=== PATIENT | female | born 1985 | race Caucasian/White ===

== ENCOUNTER 2017-05-31 18:49 | Emergency (ER) | payer OTHER ==
[2017-05-31 22:15] LABS: BASOPHIL % 0.4 % (0-2); PLATELET COUNT 321 x10^3mcL (130-400); RED CELL DISTRIBUTION WIDTH 12.8 % (11.5-14.5)
[2017-05-31 22:20] LABS: CARBON DIOXIDE 27.7 mmol/L (21-32); CHLORIDE SERUM 99 mmol/L (98-107); CREATININE SERUM 0.8 mg/dL (0.6-1.0); GFR1 > 60 mL/min; GLUCOSE SERUM 88 mg/dL (74-106); POTASSIUM SERUM 3.3 mmol/L (3.5-5.1); SODIUM SERUM 138 mmol/L (136-145)
[2017-05-31 22:23] LABS: ALBUMIN 4.1 g/dL (3.4-5.0); ALKALINE PHOSPHATASE 59 U/L (46-116); ALT/SGPT 28 U/L (14-59); AMYLASE 33 U/L (25-115); AST/SGOT 19 U/L (15-37); BILIRUBIN TOTAL 0.7 mg/dL (0.20-1.00); LIPASE 79 IU/L (73-393); TOTAL PROTEIN, SERUM 7.8 g/dL (6.4-8.2)
[2017-06-01 00:48] VITALS: BP 138/91
[2017-06-02] MEDS ORDERED: NORCO1 TA2 (11:37)
== END 2017-06-01 00:48 | disposition home or self-care (01) ==
LOC: ED 18:49
PROVIDERS: Emergency Medicine
DX: K80.70 Calculus of gallbladder and bile duct without cholecystitis without obstruction (principal); Z88.8 Allergy status to other drugs, medicaments and biological substances
CPT/HCPCS: 36415; 83880; J1170; J2270; Q0092; Q0162

== ENCOUNTER 2017-06-02 10:37 | Inpatient (IN) | payer OTHER ==
[~2017-06-02] VITALS: Ht 154.9 cm; Wt 82.8 kg
--- NOTE | 2017-06-02 10:45 | NUR ---
PT C/O RUQ ABD PAIN X2 DAYS. PT REPORTS RECENT DX OF GALLSTONES AND HAS BEEN UNABLE TO SEE PMD. PT STS SHE TOOK 2 NORCOS THIS AM AND HAS NOT FELT RELIEF FROM PAIN. PT REPORTS 10/10 ABD PAIN. STS NAUSEA AND DENIES EMESIS. NO ABD DISTENTION NOTED. COMFORT MEASURES IMPLEMENTED. CALL LIGHT W/IN REACH. PT AWAITING MSE. WILL CONTINUE TO MONITOR.
[2017-06-02 11:12] LABS: BASOPHIL % 0.4 % (0-2); PLATELET COUNT 322 x10^3mcL (130-400); RED CELL DISTRIBUTION WIDTH 12.8 % (11.5-14.5)
--- NOTE | 2017-06-02 11:16 | NUR ---
MEDICATED ORDERED. PLEASE SEE EMR.
[2017-06-02 11:32] LABS: ALBUMIN 4.2 g/dL (3.4-5.0); ALKALINE PHOSPHATASE 314 U/L (46-116); ALT/SGPT 803 U/L (14-59); AST/SGOT 817 U/L (15-37); BILIRUBIN TOTAL 4.8 mg/dL (0.20-1.00); CALCIUM 9.8 mg/dL (8.5-10.1); CARBON DIOXIDE 28.9 mmol/L (21-32); CHLORIDE SERUM 100 mmol/L (98-107); CREATININE SERUM 0.8 mg/dL (0.6-1.0); GFR1 > 60 mL/min; GLUCOSE SERUM 98 mg/dL (74-106); LIPASE 123 IU/L (73-393); POTASSIUM SERUM 3.8 mmol/L (3.5-5.1); SODIUM SERUM 135 mmol/L (136-145)
[2017-06-02 11:33] LABS: TOTAL PROTEIN, SERUM 8.5 g/dL (6.4-8.2)
[2017-06-02] MEDS ORDERED: NORCO1 TA2 (11:37)
--- NOTE | 2017-06-02 11:50 | NUR ---
LAB AT BEDSIDE FOR DRAW.
--- NOTE | 2017-06-02 12:30 | NUR ---
PT REPORTING INCREASE IN PAIN. DISCOMFORT NOTED. PRN PAIN MEDS TO FOLLOW.
--- NOTE | 2017-06-02 12:43 | NUR ---
MEDICATED ORDERED. PLEASE SEE EMR.
[2017-06-02 12:55] LABS: UA SPECIFIC GRAVITY <=1.005 (1.005-1.035); microscopic required? YES; urine erythrocyte NEGATIVE (NEGATIVE)
--- NOTE | 2017-06-02 13:03 | NUR ---
REPORT GIVEN TO VIRAL BAXTER FOR CONTINUATION OF CARE.
[2017-06-02 13:15] LABS: PHOSPHOROUS 2.8 mg/dL (2.5-4.9)
[2017-06-02 13:17] LABS: CHOLESTEROL/HDL RATIO 2.1
[2017-06-02 13:25] LABS: FREE T4 1.31 ng/dL (0.76-1.46); FREE THYROXINE INDEX 4.4 ug/dL (1.4-4.5); T4(THYROXINE) 11.6 ug/dL (4.7-13.3)
[2017-06-02 13:28] LABS: T3 TOTAL 1.03 ng/mL
--- NOTE | 2017-06-02 13:40 | NUR ---
RECEIVED PT FROM ED VIA [facility], CAME IN DUE TO RIGHT SIDED ABDOMINAL PAIN RADIATING TO HER BACK SINCE MONDAY. AAOX4. C/O DIZZINESS. NO SOB NOTED. LUNG SOUNDS CTA. DENIES CHEST PAIN/PRESSURE, SINUS TACHYCARDIA ON THE MONITOR, HR AT 116. C/O 4/10 RIGHT SIDED ABDOMINAL AND BACK PAIN DESCRIBED SHARP. C/O DRY MOUTH. VOIDS FREELY. PRIMARY NURSE SAHIL MADE AWARE THAT OGYP=039.0. RECEIVED PT FROM ED W/ LELO ONGOING. SIDE RAILS UPX2. CALL LIGHT ON REACH. AT BEDSIDE. ENDORSED
[2017-06-02 13:43] VITALS: BP 129/87
[2017-06-02 13:51] VITALS: Ht 154.9 cm; Wt 82.8 kg
[2017-06-02 13:52] VITALS: BP 129/87
--- NOTE | 2017-06-02 14:49 | NUR ---
RUSUME CARE OF PATIENT. PATIENT AWAKE ALERT, NO DISTRESS NOTED AT THIS TIME. REPORTS PAIN IS BETTER AND IS MORE MANAGEABLE
--- NOTE | 2017-06-02 15:07 | NUR ---
TEMP NOW IS 99.4. COOLING MEASURES MAINTAINED.
[2017-06-02 15:14] LABS: AMPHETAMINE QUAL UR NONE DETECTED (NEG <=1000)
--- NOTE | 2017-06-02 15:41 | NUR ---
REPORTS PAIN 8/10 IN ABD AND BACK, GIVEN MORPHINE IVP, TOLERATED WELL. SAHIL RN IN ROOM ASSISTING WITH KEITH WASH BEFORE PROCEDURE
--- NOTE | 2017-06-02 15:59 | NUR ---
IV SL. TAKEN TO PROCEDURE BY MATT, CHART WITH PATIENT
--- NOTE | 2017-06-02 18:38 | NUR ---
RECEIVED BACK FROM PROCEDURE. PT ALERT AND ORIENTED, NO DISTRESS NOTED.
--- NOTE | 2017-06-02 18:57 | NUR ---
PT AWAKE AND ALERT, NO DISTRESS NOTED, WILL ENDORSE TO NIGHT NURSE
--- NOTE | 2017-06-02 19:18 | NUR ---
MEDICATED WITH MORPHINE IVP FOR HEADACHE AND ABD. PAIN 06/18.RESTING IN BED, NO ACUTE RESP. DISTRESS NOTED. FAMILY AT BEDSIDE. WILL BE ENDORSED TO INCOMING SHIFT.
--- NOTE | 2017-06-02 19:19 | NUR ---
NURSING CO-SIGN THE DOCUMENTATION ENTERED BY THE RN FRANCESCO HAS BEEN REVIEWED. REVIEWED/CO-SIGNED BY: Mylene Ching DOCUMENTATION DONE BY:TEAGAN BOB
--- NOTE | 2017-06-02 20:13 | NUR ---
PATIENT AWAKE, ALERT, ORIENTED X4 IN BED. RESPIRATION EVEN AND UNLABORED, ON ROOM AIR. ONGOING LACTATED RINGERS AT 150 CC/HR AT THE LEFT FOREARM. C/O ON/OFF ABDOMINAL PAIN. VOIDING FREELY IN THE BATHROOM. AMBULATES INDEPENDENTLY. SCD'S TO BLE. SKIN DRY AND INTACT. ON TELE #30. WILL CONTINUE TO MONITOR.
[2017-06-02 21:54] VITALS: BP 115/80
--- NOTE | 2017-06-02 23:51 | NUR ---
PATIENT COMPLAINED OF SHARP ABDOMINAL PAIN, PS 10/10. MEDICATED WITH MORPHINE SULFATE 2MG IVP. WILL REASSESS PATIENT.
--- NOTE | 2017-06-02 23:52 | NUR ---
PATIENT VITAL SIGNS POST NORMAL SALINE BOLUS BP 98/80, HR 80, RR 18.
[2017-06-03 05:42] VITALS: BP 103/72
--- NOTE | 2017-06-03 05:55 | NUR ---
PATIENT COMPLAINED OF SHARP ABDOMINAL PAIN, PS 9/10. MEDICATED WITH MORPHINE SULFATE 2MG IVP ORDERED. WILL REASSESS PATIENT.
[2017-06-03 06:22] LABS: BASOPHIL % 0.1 % (0-2); PLATELET COUNT 181 x10^3mcL (130-400); RED CELL DISTRIBUTION WIDTH 12.8 % (11.5-14.5)
--- NOTE | 2017-06-03 06:37 | NUR ---
PATIENT RESTING IN BED. RESPIRATION EVEN AND UNLABORED, ON ROOM AIR. IV SITE NO SIGN OF INFILTRATION. CONTINUES TO COMPLAIN OF ABDOMINAL PAIN. MAINTAINED ON NPO EXCEPT MEDS. ASSISTED WITH NEEDS. SAFETY OBSERVED. PLACED CALL LIGHT WITHIN REACH AT ALL TIMES.
[2017-06-03 06:44] LABS: MAGNESIUM 1.6 mg/dL (1.8-2.4); PHOSPHOROUS 3.3 mg/dL (2.5-4.9)
--- NOTE | 2017-06-03 07:40 | NUR ---
ALERT AND ORIENTED. TELE #30. PULSES PRESENT, NO EDEMA NOTED. LUNG SOUNDS CTA ON RA. BS PRESENT, REPORTS FLATUS, LBM 06/02/17. ABD SOFT, NON DISTENDED. REPORTS SOME PAIN IN ABD, NO PAIN ON PALPATION. REPORTS NO PROBLEM VOIDING BRP. SKIN WARM, DRY AND INTACT. IVF RUNNING LR @ 150. IV SITE WNL
[2017-06-03 07:50] LABS: ALKALINE PHOSPHATASE 209 U/L (46-116); ALT/SGPT 421 U/L (14-59); AMYLASE 29 U/L (25-115); AST/SGOT 201 U/L (15-37); BILIRUBIN TOTAL 4.2 mg/dL (0.20-1.00); CARBON DIOXIDE 24.4 mmol/L (21-32); CHLORIDE SERUM 103 mmol/L (98-107); CREATININE SERUM 0.7 mg/dL (0.6-1.0); GFR1 > 60 mL/min; GLUCOSE SERUM 79 mg/dL (74-106); LIPASE 73 IU/L (73-393); POTASSIUM SERUM 3.4 mmol/L (3.5-5.1); SODIUM SERUM 136 mmol/L (136-145)
[2017-06-03 07:54] LABS: CALCIUM 7.8 mg/dL (8.5-10.1)
[2017-06-03 07:55] LABS: ALBUMIN 2.7 g/dL (3.4-5.0); TOTAL PROTEIN, SERUM 5.9 g/dL (6.4-8.2)
[2017-06-03 09:41] VITALS: BP 117/82
[2017-06-03 12:23] VITALS: BP 120/83
--- NOTE | 2017-06-03 12:57 | NUR ---
REPORTS PAIN 7/10, GIVEN PAIN MEDICATION. NO SOB OR DISTRESS NOTED
--- NOTE | 2017-06-03 13:28 | NUR ---
NO DISTRESS NOTED. REPORTED PAIN IS GRADUALLY GETTING BETTER, 5/10. RESPIRATIONS EVEN AND UNLABORED
--- NOTE | 2017-06-03 13:53 | NUR ---
PT LEFT TO O.R IN NO DISTRESS. ALERT AND ORIENTED. VS STABLE. NO C/O PAIN OR DISCOMFORT.
--- NOTE | 2017-06-03 17:15 | NUR ---
RECEIVED REPORT FROM ERVIN IN OR, PATIENT WILL BE UP SHORTLY
--- NOTE | 2017-06-03 17:30 | NUR ---
RECEIVED PATIENT FROM OR, NO DISTRESS NOTED. 5 BAND AIDS TO ABD CDI
[2017-06-03 17:41] VITALS: BP 133/88
--- NOTE | 2017-06-03 17:50 | NUR ---
UNABLE TO INSTRUCT PT ON USE OF INCENTIVE SPIROMETER AT THIS TIME, PT RETURNED FROM SURGERY AND REMAINS DROWSY AND IN PAIN AT THIS TIME, WILL RETURN FOR PROPER TEACHING AND DEMONSTRATION OF INCENTIVE SPIROMETER.
--- NOTE | 2017-06-03 18:00 | NUR ---
REPORTS PAIN 10/10, THROBBING PAIN IN ABD, GIVEN PAIN MEDICATION. IS AT BEDSIDE
[2017-06-03 18:38] VITALS: BP 93/40
--- NOTE | 2017-06-03 18:51 | NUR ---
PT REPORTS PAIN HAS NOT DECREASED. AMB TO BATHROOM, PAIN WHILE AMB. PATIENT VOIDED AND BACK IN BED. BREATHING UNLABORED ON RA. NO DISTRESS NOTED. WILL ENDORSE TO NIGHT NURSE
--- NOTE | 2017-06-03 19:18 | NUR ---
NURSING CO-SIGN THE DOCUMENTATION ENTERED BY THE RN FRANCESCO HAS BEEN REVIEWED. REVIEWED/CO-SIGNED BY: Mylene Ching DOCUMENTATION DONE BY:Marii BOB
--- NOTE | 2017-06-03 20:04 | NUR ---
PT CURRENTLY RESTING IN BED, NO ACUTE DISTRESS. A/O X4. TELE #30 SHOWING SINUS RHYTHM, DENIES CHEST PAIN. PULSES PALPABLE IN ALL EXTREMITIES, NO EDEMA NOTED. LUNG SOUNDS CTA BILATERALLY. BOWEL SOUNDS ACTIVE, LAST BM 06/02/17. VOIDING WELL. AMBULATORY. ABD INCISION X5, BANDAIDS CDI. ABD PAIN 06/18, WILL MEDICATE PER EMAR. IV PATENT AND INTACT. BED IN LOWEST POSITION, SIDE RAILS UP X2, SCDS IN PLACE, CALL LIGHT WITHIN REACH. WILL CONTINUE TO MONITOR.
--- NOTE | 2017-06-03 20:49 | NUR ---
PT C/O LEFT EYE BLURRY VISION AND IRRITATION, DR MÉNDEZ AWARE. WILL CONTINUE TO MONITOR.
[2017-06-03 20:58] VITALS: BP 142/89
[2017-06-04 05:56] VITALS: BP 139/77
--- NOTE | 2017-06-04 06:01 | NUR ---
PT SLEPT PERIODICALLY THROUGHOUT NIGHT, NO ACUTE DISTRESS. ALL NEEDS MET AND ATTENDED TO. NO SIGNIFICANT CHANGES. MEDICATED PAIN PER EMAR. IV PATENT AND INTACT. BED IN LOWEST POSITION, SIDE RAILS UP X2, CALL LIGHT WITHIN REACH. WILL ENDORSE CARE TO ONCOMING NURSE.
[2017-06-04 06:54] LABS: BASOPHIL % 0.1 % (0-2); PLATELET COUNT 213 x10^3mcL (130-400)
[2017-06-04 06:55] LABS: ALKALINE PHOSPHATASE 205 U/L (46-116); ALT/SGPT 312 U/L (14-59); AST/SGOT 141 U/L (15-37); BILIRUBIN TOTAL 2.86 mg/dL (0.20-1.00); CALCIUM 8.8 mg/dL (8.5-10.1); CARBON DIOXIDE 24.2 mmol/L (21-32); CHLORIDE SERUM 106 mmol/L (98-107); CREATININE SERUM 0.7 mg/dL (0.6-1.0); GFR1 > 60 mL/min; GLUCOSE SERUM 106 mg/dL (74-106); POTASSIUM SERUM 4.1 mmol/L (3.5-5.1); SODIUM SERUM 138 mmol/L (136-145); TOTAL PROTEIN, SERUM 6.5 g/dL (6.4-8.2)
[2017-06-04 06:57] LABS: ALBUMIN 2.7 g/dL (3.4-5.0)
[2017-06-04 07:19] LABS: PHOSPHOROUS 2.4 mg/dL (2.5-4.9)
--- NOTE | 2017-06-04 07:34 | NUR ---
ALERT AND ORIENTED. S1 AND S2 HEARD ON AUSCULTATION, TELE #30, NO DISTRESS NOTED. PULSES PRESENT, NO EDEMA NOTED. LUNG SOUNDS CTA BILATERALLY. BS ACTIVE, LBM 06/02/17. 5 BAND AIDS ON ABD, CDI, TENDERNESS TO RUQ UPON PALPATION. REPORTS NO PROBLEM VOIDING. REPORTS PAIN IS BETTER 4/10 IN ABD. IV SITE WNL, LR @150.
[2017-06-04 09:25] VITALS: BP 134/101
[2017-06-04 12:55] VITALS: BP 137/77
[2017-06-04 16:31] VITALS: BP 133/93
--- NOTE | 2017-06-04 16:37 | NUR ---
REPORTS PAIN 10/10 RUQ, ACHING PAIN AND SHARP PAIN WHILE MOVING, GIVEN TORADOL. AMBULATED IN THE HALLWAY EARLIER, REPORTS NO PROBLEM
--- NOTE | 2017-06-04 18:39 | NUR ---
PATIENT REPORTS PAIN IS BETTER 3/10, TOLERATED DINNER WELL, NO NAUSEA. NO DISTRESS NOTED. WILL ENDORSE TO NIGHT NURSE
--- NOTE | 2017-06-04 19:01 | NUR ---
NURSING CO-SIGN THE DOCUMENTATION ENTERED BY THE RN FRANCESCO HAS BEEN REVIEWED. REVIEWED/CO-SIGNED BY: Mylene Ching DOCUMENTATION DONE BY:PAULINO CANDELARIA
--- NOTE | 2017-06-04 20:02 | NUR ---
PT CURRENTLY RESTING IN BED, NO ACUTE DISTRESS. A/O X4. TELE #30 SHOWING SINUS RHYTHM, DENIES CHEST PAIN. PULSES PALPABLE IN ALL EXTREMITIES, NO EDEMA NOTED. LUNG SOUNDS CTA BILATERALLY. BOWEL SOUNDS ACTIVE, LAST BM 06/02/17. VOIDING WELL. AMBULATORY. ABD INCISION X5, BANDAIDS CDI. PT STATES ABD PAIN 4/10, DENIES PAIN MEDICATION AT THIS TIME. IV PATENT AND INTACT. BED IN LOWEST POSITION, SIDE RAILS UP X2, SCDS IN PLACE, CALL LIGHT WITHIN REACH. WILL CONTINUE TO MONITOR.
[2017-06-04 21:06] VITALS: BP 125/84
[2017-06-05 05:25] VITALS: BP 137/93
--- NOTE | 2017-06-05 05:36 | NUR ---
PT SLEPT PERIODICALLY THROUGHOUT NIGHT, NO ACUTE DISTRESS. ALL NEEDS MET AND ATTENDED TO. NO SIGNIFICANT CHANGES. IV PATENT AND INTACT. MEDICATED PAIN PER EMAR. BED IN LOWEST POSITION, SIDE RAILS UP X2, CALL LIGHT WITHIN REACH. WILL ENDORSE CARE TO ONCOMING NURSE.
[2017-06-05 07:16] LABS: CALCIUM 8.5 mg/dL (8.5-10.1); CARBON DIOXIDE 25.2 mmol/L (21-32); CHLORIDE SERUM 107 mmol/L (98-107); CREATININE SERUM 0.8 mg/dL (0.6-1.0); GFR1 > 60 mL/min; GLUCOSE SERUM 84 mg/dL (74-106); MAGNESIUM 1.9 mg/dL (1.8-2.4); PHOSPHOROUS 1.6 mg/dL (2.5-4.9); POTASSIUM SERUM 3.5 mmol/L (3.5-5.1); SODIUM SERUM 139 mmol/L (136-145)
[2017-06-05 07:23] LABS: BASOPHIL % 0.2 % (0-2); PLATELET COUNT 245 x10^3mcL (130-400); RED CELL DISTRIBUTION WIDTH 12.9 % (11.5-14.5)
--- NOTE | 2017-06-05 07:40 | NUR ---
PT RECEIVED AAOX4, CONVERSING WELL IN FULL SENTENCES. RESP EVEN AND UNLABORED ON RA. DENIES ANY SOB OR COUGH. DENIES ANY CP OR PRESSURE. IV ON LAC INTACT, INFUSING LR AT 150ML/HR. ABD ROUND/SOFT WITH ACTIVE BS IN ALL QUADS. [address], STAINED BUT INTACT. S/P LAP JESUS 06/03. DENIES ANY ABD PAIN, N/V AT THIS TIME. (+) FLATUS, (-) BM. TOLERATING DIET WITHOUT COMPLAINTS. ENCOURAGED TO AMBULATE. OBSERVED I.S. USE, APPROX 1750. ENCOURAGED TO USE REGULARLY. ASSISTED WITH BREAKFAST SET UP. DENIES ANY OTHER NEEDS AT THIS TIME. CALL LIGHT WITHIN REACH. WILL CONTINUE TO MONITOR.
[2017-06-05 09:30] VITALS: BP 147/98
--- NOTE | 2017-06-05 09:50 | NUR ---
IVF DC'D ORDERED.
--- NOTE | 2017-06-05 10:50 | NUR ---
DRESSINGS ON ABD CHANGED, CLEANSED WITH NS, PAT DRY, AND NEW BANDAID APPLIED. NOTED WITH 4 SMALL INCISIONS. MID UPPER ABD INCISION WITH 6 HUMBLE. 2 RIGHT ABD INCISIONS WITH 3 HUMBLE EACH. UMBILICAL INCISION WITH 5 HUMBLE. LEFT ABD PUNCTURE WOUND CLEAN AND CLOSED, KEPT RAT CULTURIST. PREMEDICATED WITH NORCO ORDERED PRN, SEE EMAR. PT TOLERATED WELL WITHOUT COMPLAINTS. DENIES ANY OTHER NEEDS AT THIS TIME. CALL LIGHT WITHIN REACH. WILL CONTINUE TO MONITOR.
[2017-06-05] MEDS ORDERED: NORCO1 TA2 PO (11:15)
[2017-06-05] MEDS ORDERED: COL100 PO (11:16)
[2017-06-05] MEDS ORDERED: AUG500 PO (11:16)
[2017-06-05] MEDS ORDERED: ZOFI IV (11:17)
[2017-06-05] MEDS ORDERED: ZOFRAN8 MG PO (11:32)
[2017-06-05 11:44] VITALS: BP 147/98
--- NOTE | 2017-06-05 13:05 | NUR ---
PT TOLERATED LUNCH WELL WITH NO C/O NAUSEA. PT AMBULATING FREELY AND TOLERATING WELL.
[2017-06-05] MEDS ORDERED: BD LACTINEX1.4 MG PO (13:13)
--- NOTE | 2017-06-05 13:17 | NUR ---
WRITTEN ADN VERBAL DISCHARGE INSTRUCTIONS DISCUSSED WITH PATIENT. VERBALIZED UNDERSTANDING OF TEACHINGS GIVEN. IV ON LAC DC'D WITH ANGIOCATH INTACT. PT TOLERATED WELL. DISCHARGED HOME WITH . AAOX4. NO S/S OF ACUTE DISTRESS ON DEPARTURE.
== END 2017-06-05 13:18 | disposition home or self-care (01) | DRG 853 ==
LOC: ED 10:37 → DU 11:25 → MU 11:25 → DU 13:15 → MU 06-04 11:06
PROVIDERS: Emergency Medicine; Family Medicine; Internal Medicine Gastroenterology; Surgery; ADMIT Family Medicine
PROC: 0F798ZZ Dilation of Common Bile Duct, Via Natural or Artificial Opening Endoscopic (ICD-10-PCS; 2017-06-02 16:00)
PROC: 0FC98ZZ Extirpation of Matter from Common Bile Duct, Via Natural or Artificial Opening Endoscopic (ICD-10-PCS; 2017-06-02 16:00)
PROC: BF101ZZ Fluoroscopy of Bile Ducts using Low Osmolar Contrast (ICD-10-PCS; 2017-06-03)
PROC: 0FT44ZZ Resection of Gallbladder, Percutaneous Endoscopic Approach (ICD-10-PCS; principal; 2017-06-03 07:30)
DX: A41.9 Sepsis, unspecified organism (principal); E43 Unspecified severe protein-calorie malnutrition; K80.42 Calculus of bile duct with acute cholecystitis without obstruction; E87.6 Hypokalemia; E03.9 Hypothyroidism, unspecified; E83.42 Hypomagnesemia; E83.39 Other disorders of phosphorus metabolism; D64.9 Anemia, unspecified; M46.97 Unspecified inflammatory spondylopathy, lumbosacral region; B96.1 Klebsiella pneumoniae [K. pneumoniae] as the cause of diseases classified elsewhere; R74.0 Nonspecific elevation of levels of transaminase and lactic acid dehydrogenase [LDH]; Z68.34 Body mass index [BMI] 34.0-34.9, adult; Z90.89 Acquired absence of other organs; Z88.1 Allergy status to other antibiotic agents; Z91.013 Allergy to seafood; Z87.891 Personal history of nicotine dependence
CPT/HCPCS: 43262; 76001; 83880; 84439; C1758; C1769; J0330; J1170; J1885; J2250; J2270; J2405; J2543; J2704; J3010; J3480; J3490; J7030; J7050; J7120; Q9967